=== PATIENT | female | born 1945 | race African-American/Black ===

== ENCOUNTER → 2020-06-01 | Outpatient (CLI) | payer OTHER | LOC: SJCVC 14:04 | PROVIDERS: ATTEND Internal Medicine | DX: R94.31 Abnormal electrocardiogram [ECG] [EKG] (principal); I10 Essential (primary) hypertension; I08.0 Rheumatic disorders of both mitral and aortic valves; E66.9 Obesity, unspecified; Z68.39 Body mass index [BMI] 39.0-39.9, adult ==

== ENCOUNTER → 2020-06-11 | Outpatient (CLI) | payer OTHER | LOC: SJCVC 14:57 | PROVIDERS: ATTEND Internal Medicine | DX: I10 Essential (primary) hypertension (principal); R01.1 Cardiac murmur, unspecified; I42.9 Cardiomyopathy, unspecified; I08.0 Rheumatic disorders of both mitral and aortic valves ==

== ENCOUNTER → 2020-07-09 | Outpatient (CLI) | payer OTHER | LOC: SJCVC 16:03 | PROVIDERS: ATTEND Internal Medicine Cardiovascular Disease | DX: I11.9 Hypertensive heart disease without heart failure (principal); I08.0 Rheumatic disorders of both mitral and aortic valves; E66.9 Obesity, unspecified; Z68.39 Body mass index [BMI] 39.0-39.9, adult; Z79.899 Other long term (current) drug therapy ==

== ENCOUNTER → 2021-05-17 | Outpatient (CLI) | payer OTHER | LOC: SJCVC 13:16 | PROVIDERS: ATTEND Internal Medicine | DX: R94.31 Abnormal electrocardiogram [ECG] [EKG] (principal); I10 Essential (primary) hypertension; I51.7 Cardiomegaly; I08.0 Rheumatic disorders of both mitral and aortic valves; E66.1 Drug-induced obesity; Z88.8 Allergy status to other drugs, medicaments and biological substances ==

== ENCOUNTER → 2021-06-07 | Outpatient (CLI) | payer OTHER | LOC: SJCVC 09:31 | PROVIDERS: ATTEND Internal Medicine | DX: I10 Essential (primary) hypertension (principal); E78.00 Pure hypercholesterolemia, unspecified; E66.9 Obesity, unspecified; I08.0 Rheumatic disorders of both mitral and aortic valves; Z13.220 Encounter for screening for lipoid disorders; Z88.8 Allergy status to other drugs, medicaments and biological substances; E78.5 Hyperlipidemia, unspecified ==

== ENCOUNTER → 2021-07-04 | Outpatient (CLI) | payer OTHER | LOC: SJCVC 09:58 | PROVIDERS: ATTEND Internal Medicine | DX: I11.9 Hypertensive heart disease without heart failure (principal); Z13.220 Encounter for screening for lipoid disorders; R06.00 Dyspnea, unspecified; E66.9 Obesity, unspecified; Z88.1 Allergy status to other antibiotic agents ==

== ENCOUNTER → 2021-11-01 | Outpatient (CLI) | payer OTHER | LOC: SJCVC 13:21 | PROVIDERS: ATTEND Internal Medicine | DX: R94.31 Abnormal electrocardiogram [ECG] [EKG] (principal); I10 Essential (primary) hypertension; R06.02 Shortness of breath; I08.0 Rheumatic disorders of both mitral and aortic valves; E66.9 Obesity, unspecified; Z88.8 Allergy status to other drugs, medicaments and biological substances; Z79.899 Other long term (current) drug therapy ==

== ENCOUNTER 2021-11-27 03:46 | Observation (INO) | payer OTHER ==
[~2021-11-27] VITALS: Ht 167.6 cm; Wt 102.1 kg
[~2021-11-27 03:46] MED LIST: AMLODIPINE BESY10 MG PO; ATORVASTATIN CA20 MG PO; CEFDINIR300 MG PO; METOPROLOL SUC100 MG PO; NORVASC10 MG PO
[2021-11-27 03:48] VITALS: BP 194/91
[2021-11-27 04:43] LABS: ABSOLUTE NEUTROPHILS 5.9 thou/uL (1.4-8.2); BASOPHILS 0.7 % (0.0-2.0); EOSINOPHILS 1.4 % (0.0-3.0); HEMOGLOBIN 10.8 gm/dL (12.0-15.0); LYMPHOCYTES 22.6 % (24.0-44.0); MCH 28.3 pg (26.0-34.0); MCHC 32.7 g/dL (28.0-37.0); MCV 86.6 fL (80.0-100.0); MONOCYTES 6.3 % (1.0-8.0); PLATELET COUNT 261 thou/uL (150-400); RBC 3.81 mil/uL (4.20-5.00); RDW 14.7 % (10.5-14.5); WBC 8.6 thou/uL (4.0-11.0)
[2021-11-27 04:48] LABS: CALCIUM 9.7 mg/dL (8.5-10.1); CREATININE 0.8 mg/dL (0.6-1.0); POTASSIUM 3.8 mmol/L (3.5-5.1)
[2021-11-27 04:54] LABS: APTT 28.8 Seconds (24.5-32.8); INR 0.94; PROTIME 10.3 Seconds (10.5-12.1)
[2021-11-27 04:58] LABS: ALBUMIN 3.5 g/dL (3.4-5.0); TOTAL BILIRUBIN 0.2 mg/dL (0.2-1.0); TOTAL PROTEIN 7.9 g/dL (6.4-8.2)
--- NOTE | 2021-11-27 09:54 | EKG ---
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: : [id number] Requested By: Kana Glass Order Number: [id number] MD: True Carlos Measurements Intervals Kiln Rate: 63 P: 17 KY: 221 QRS: 4 QRSD: 99 T: 122 QT: 413 QTc: 423 Interpretive Statements Sinus rhythm Atrial premature complex Prolonged [place] interval LVH with secondary repolarization abnormality Compared to ECG 11/11/2021 07:46:03 Atrial premature complex(es) now present First degree AV block now present Early repolarization now present Electronically Signed On 11-27-2021 9:54:09 [employer] by True Carlos [email or web address] <ELECTRONICALLY SIGNED> By: True Carlos MD 11/27/21 0954 D: 02/406 6 True Carlos MD /JEANNE
[2021-11-27 15:24] VITALS: BP 164/64
--- NOTE | 2021-11-27 19:18 | NUR ---
Assumed care of pt at 1530. Pt is A&0x4, VS stable and afebrile. Pt BP currently is being controlled with BP medicationa and is currently 146/86. Pt is steady on feet; gets up to use bedside commode but is aware of her limitations and calls if she needs assistance. Cardiology consult has been called in. No current concerns. Continue to monitor.
[2021-11-27 20:00] VITALS: BP 154/58
[2021-11-27 21:00] VITALS: BP 90/55
--- NOTE | 2021-11-28 03:40 | NUR ---
RECEIVED PATIENT AT 1900H.PATIENT IS ALERT AN DORIENTEDX4.ASESSMENT DONE CHARTED.ALL NEEDS ATTENDED.TO CONTINOUSLY MONITOR.
[2021-11-28 04:00] VITALS: BP 185/83
[2021-11-28 04:38] LABS: HEMATOCRIT 31.8 % (37.0-47.0); HEMOGLOBIN 10.5 gm/dL (12.0-15.0); MCH 28.5 pg (26.0-34.0); MCHC 32.9 g/dL (28.0-37.0); MCV 86.6 fL (80.0-100.0); RBC 3.67 mil/uL (4.20-5.00); RDW 14.4 % (10.5-14.5)
[2021-11-28 04:57] LABS: CALCIUM 8.9 mg/dL (8.5-10.1); CREATININE 0.7 mg/dL (0.6-1.0); POTASSIUM 3.7 mmol/L (3.5-5.1)
[2021-11-28 08:52] VITALS: BP 159/75
--- NOTE | 2021-11-28 09:17 | HC ---
[facility] [place] [address] CONSULTATION Name: AMY BRIONES Room #: [facility] Svetlana MOkR.#: [id number] Admission: 11/27/21 Attend Phys: Raymond Henley MD Discharge: Date of : 47 Report #: [id number] THIS REPORT FOR: cc: FAM - No family physician/PCP FAM - No family physician/PCP True Carlos MD ~ CARDIOLOGY CONSULTATION INDICATION: Shortness of breath. HISTORY OF PRESENT ILLNESS: This is a 76-year-old female with a history of hypertension, hypercholesterolemia, obesity, presenting with shortness of breath and weakness. She was recently hospitalized several weeks ago with pneumonia. She has completed her antibiotic course and was back to her usual state of health until yesterday. She felt generalized weakness and shortness of air while at rest. Later in the evening, she felt numbness on the right side of her face. There is no history of chest pains, palpitations, diaphoresis, fever, chills or cough. Troponin level is 54. There is no history of PND or orthopnea. PAST MEDICAL HISTORY: Labile hypertension, hypercholesterolemia, obesity. Recent echo revealed normal LV systolic function, mild aortic stenosis, mild to moderate mitral regurgitation. ALLERGIES: None. MEDICATIONS: Amlodipine 10 mg daily, antibiotic, metoprolol and atorvastatin. SOCIAL HISTORY: Denies tobacco use. FAMILY HISTORY: Negative for premature CAD. REVIEW OF SYSTEMS: A full 10-point review of systems performed. Only the pertinent positives and negatives are described in the HPI. PHYSICAL EXAMINATION: VITAL SIGNS: Blood pressure is 160/80, heart rate is 70 beats per minute. GENERAL APPEARANCE: This is an overweight female in no acute distress. HEENT: Normocephalic, atraumatic. Oral mucosa moist. NECK: Supple. LUNGS: CTA. CARDIAC: Regular rate and rhythm, S1, S2 positive. ABDOMEN: Soft, nontender. EXTREMITIES: No cyanosis, no edema. [facility] [address] [place] [address] CONSULTATION Name: AMY BRIONES Room #: [facility].#: [id number] Admission: 11/27/21 Attend Phys: Raymond Henley MD Discharge: Date of : 47 Report #: [id number] LABORATORY DATA: Peak troponin is 54. Hemoglobin is 10.8, creatinine 0.8. DIAGNOSTIC DATA: ECG reveals sinus rhythm with T-wave inversions in the inferolateral leads. ASSESSMENT AND PLAN: 1. Shortness of breath/generalized weakness with minimal troponin elevation. No episodes of chest pain. Of concern is the presence of silent ischemia given her significant risk factors and positive troponin levels. We will discuss with Dr. Simon regarding further cardiac testing: Noninvasive stress testing versus cardiac catheterization. 2. Hypertension. Elevated blood pressure, resume medications. 3. Hypercholesterolemia, continue with statin therapy. <ELECTRONICALLY SIGNED> By: True Carlos MD 11/28/21 0917 [id number] MD gerry Matos
[2021-11-28 12:00] VITALS: BP 145/72
--- NOTE | 2021-11-28 12:12 | NUR ---
Pt is A&Ox4, VS stable and afebrile. Dr. Martinze spoke with pt today; pt is aware that she will be spending one more night in the hospital so that we can monitor her BP and determine what medication regimen she will be discharged on. No current concerns. Continue to monitor.
--- NOTE | 2021-11-28 13:19 | NUR ---
I have reviewed the documentation by PRIMITIVO CHAPA from 11/28/21 to 11/28/21 and I concur with it. KATHIA CASTILLO, PT, DPT
--- NOTE | 2021-11-28 15:23 | NUR ---
CHART REVIEWED AND DISCUSSED WITH CARE TEAM. PT ADMITTED FOR DYSPNEA AND ABNORMAL EKG. PT HAS PT/OT ORDERS. BOTH DISCIPLINES REPORTED PT SAFE TO DC HOME WITH NO NEEDS. PT A&O PER RECORDSA ND UP ADLIB. NO CM INTERVENTIONS INDICATED AT THIS TIME. CM FOLLOWING AND AVAILABLE SHOULD CM NEEDS ARISE OR IF PT NEEDS ASSISTANCE WITH MEDS UPON DISCHARGE.
[2021-11-28 16:00] VITALS: BP 144/54
[2021-11-28 19:46] VITALS: BP 116/60
== END 2021-11-29 | disposition still patient (30) ==
LOC: ER 03:46 → EROBS 05:36 → 2N 05:36
PROVIDERS: Emergency Medicine; Hospitalist; ADMIT Internal Medicine; ATTEND Internal Medicine
DX: I10 Essential (primary) hypertension (principal); Z20.822 Contact with and (suspected) exposure to COVID-19; E78.5 Hyperlipidemia, unspecified; R94.31 Abnormal electrocardiogram [ECG] [EKG]